=== PATIENT | male | born 1975 | race Caucasian/White ===

== ENCOUNTER 2019-10-16 19:21 | Emergency (ER) | payer OTHER ==
[~2019-10-16] VITALS: Ht 185.4 cm; Wt 99.8 kg
[2019-10-16 19:44] VITALS: Ht 185.4 cm; Wt 99.8 kg
[2019-10-16 21:39] VITALS: BP 129/72
== END 2019-10-16 21:39 | disposition home or self-care (01) ==
LOC: ED 19:21
DX: S82.091A Other fracture of right patella, initial encounter for closed fracture (principal); M25.461 Effusion, right knee; F17.210 Nicotine dependence, cigarettes, uncomplicated; X58.XXXA Exposure to other specified factors, initial encounter; Y93.89 Activity, other specified; Y92.89 Other specified places as the place of occurrence of the external cause; Y99.0 Civilian activity done for income or pay
CPT/HCPCS: 99406; J2270; Q0092; Q0162

== ENCOUNTER 2020-01-10 16:44 | Emergency (ER) | payer OTHER ==
[~2020-01-10] VITALS: Ht 177.8 cm; Wt 81.6 kg
[2020-01-10 16:52] VITALS: Ht 177.8 cm; Wt 81.6 kg
[2020-01-10 22:33] VITALS: BP 189/112
== END 2020-01-10 22:33 | disposition home or self-care (01) ==
LOC: ED 16:44
DX: M25.461 Effusion, right knee (principal); M25.561 Pain in right knee; F17.210 Nicotine dependence, cigarettes, uncomplicated; I10 Essential (primary) hypertension
CPT/HCPCS: J1885; J2001; J2270; Q0162